=== PATIENT | female | born 1995 | race Caucasian/White ===

== ENCOUNTER 2023-01-22 17:40 | Emergency (ER) | payer MEDICAID ==
[~2023-01-22] VITALS: Ht 152.4 cm; Wt 99.8 kg
[2023-01-22 18:06] VITALS: BP 138/83; TEMP 98.2; O2SAT 98
== END 2023-01-22 21:22 | disposition left against medical advice (07) ==
LOC: ER 17:51
DX: J02.9 Acute pharyngitis, unspecified (principal)